=== PATIENT | male | born 1955 | race Caucasian/White ===

== ENCOUNTER 2021-08-28 21:56 | Emergency (ER) | payer OTHER ==
[~2021-08-28 21:56] MED LIST: AFRIN15 M1; ALEVE220 M1 PO; ALLOPURINOL300 MG PO; ARTHRITIS PAIN150 GM TOP; ASMANEX HFA13 G1 INH; AUGMENTIN 500-1 EACH PO; BACLOFEN 10MG T10 MG PO; CLARITIN10 MG PO; CVS NIGHTTIME118 ML PO; DESYREL50 MG PO; FLOMAX0.4 MG PO; GUAIFENESIN200 MG PO; LAMICTAL100 MG PO; MAG-OXIDE 400M400 MG PO; NEURONTIN300 MG PO; NYSTATIN 112 TSP/BTL PO; PRILOSEC20 MG PO; PROSCAR5 MG PO; TRAMADOL HCL50 MG PO; VENTOLIN HFA IN18 GM INH; WELLBUTRIN XL300 MG PO
[2021-08-28 22:31] LABS: EOSINOPHIL 3.3 % (0-7); HCT 44.5 % (42.0-52.0); HGB 14.4 g/dl (13.2-18.0); LYMPHOCYTE 25.6 % (15-48); MCH 30.6 pg (25.0-31.0); MCHC 32.4 g/dL (32.0-36.0); MCV 94.5 fL (78.0-100.0); MONOCYTE 6.4 % (0-12); MPV 9.3 fL (6.0-9.5); NEUTROPHIL 63.5 % (41-80); NRBC 0; PLT 293 K/uL (150-400); RBC 4.71 M/uL (4.70-6.00); RDW 14.7 % (11.5-14.0); WBC 10.1 K/uL (4.0-10.5)
[2021-08-28 22:53] LABS: BILIRUBIN - TOTAL 0.3 mg/dL (0.2-1.0); BUN/CREAT RATIO (CALC) 17.2 RATIO; CREATININE 0.99 mg/dL (0.67-1.17); GLOBULIN (CALCULATION) 2.9 g/dL; POTASSIUM 4.1 mmol/L (3.5-5.1); TOTAL PROTEIN 6.9 g/dL (6.4-8.2)
[2021-08-29] MEDS ORDERED: VIBRAMYCIN100 MG PO (00:17)
[2021-08-29] MEDS ORDERED: NORVASC 10MG TA10 MG PO (00:17)
[2021-08-29] MEDS ORDERED: PREDNISONE 20MG20 MG PO (00:18)
[2021-08-29] MEDS ORDERED: AMOX TR-K CLV1 EAC4 PO (00:18)
== END 2021-08-29 08:20 | disposition home or self-care (01) ==
LOC: FER 21:56
PROVIDERS: Internal Medicine
DX: J44.1 Chronic obstructive pulmonary disease with (acute) exacerbation (principal); I10 Essential (primary) hypertension
CPT/HCPCS: 36415; 36600; 71045; 80053; 82803; 83735; 84145; 84484; 85025; 93005; 94640; 94664; J2550; J2930; J3490

== ENCOUNTER 2021-10-22 08:07 | Day surgery (SDC) | payer OTHER ==
[~2021-10-22] VITALS: Ht 168 cm; Wt 78.0 kg
[~2021-10-22 08:07] MED LIST changes: -ALEVE220 M1 PO; +AMOX TR-K CLV1 EAC4 PO; +NORVASC 10MG TA10 MG PO; +PREDNISONE 20MG20 MG PO; +VIBRAMYCIN100 MG PO
[2021-10-23 06:38] LABS: BASOPHIL 0.2 % (0-2); EOSINOPHIL 0.1 % (0-7); HCT 37.8 % (42.0-52.0); HGB 12.2 g/dl (13.2-18.0); LYMPHOCYTE 13.1 % (15-48); MCHC 32.3 g/dL (32.0-36.0); MCV 99.2 fL (78.0-100.0); MONOCYTE 9.8 % (0-12); MPV 8.9 fL (6.0-9.5); NEUTROPHIL 76.4 % (41-80); NRBC 0; PLT 380 K/uL (150-400); RBC 3.81 M/uL (4.70-6.00); RDW 14.4 % (11.5-14.0); WBC 13.4 K/uL (4.0-10.5)
[2021-10-23 07:06] LABS: BUN/CREAT RATIO (CALC) 15.2 RATIO; CREATININE 1.05 mg/dL (0.67-1.17); POTASSIUM 4.2 mmol/L (3.5-5.1)
[2021-10-23] MEDS ORDERED: FEOSOL325 MG PO ×2 (08:30→10:23)
[2021-10-23] MEDS ORDERED: ASPIRIN EC81 MG PO (10:23)
[2021-10-23] MEDS ORDERED: ALEVE220 M1 PO (16:27)
== END 2021-10-23 18:08 | disposition home or self-care (01) ==
LOC: FAS 08:07 → FMS 11:34 → FAS 10-23 18:08
PROVIDERS: Orthopaedic Surgery
DX: M19.012 Primary osteoarthritis, left shoulder (principal); G89.29 Other chronic pain; I10 Essential (primary) hypertension; K21.9 Gastro-esophageal reflux disease without esophagitis; F31.9 Bipolar disorder, unspecified; R09.02 Hypoxemia; Z87.891 Personal history of nicotine dependence; Z79.899 Other long term (current) drug therapy
CPT/HCPCS: 36415; 36600; 73020; 80048; 82803; 85025; 86850; 86900; 86901; 94010; 94640; 94760; 94762; 97116; 97161; 97166; 97535; C1713; C1776; J0171; J0697; J1100; J1885; J2250; J2270; J2405; J2704; J2795; J3010; J7120

== ENCOUNTER 2022-01-06 10:59 | Inpatient (IN) | payer OTHER ==
[~2022-01-06] VITALS: Ht 167.6 cm; Wt 64.6 kg
[~2022-01-06 10:59] MED LIST changes: +ALEVE220 M1 PO; +ASPIRIN EC81 MG PO; +FEOSOL325 MG PO
[2022-01-06 11:26] LABS: BASOPHIL 0.5 % (0-2); EOSINOPHIL 0.9 % (0-7); HCT 41.5 % (42.0-52.0); HGB 13.3 g/dl (13.2-18.0); LYMPHOCYTE 16.4 % (15-48); MCH 31.3 pg (25.0-31.0); MCV 97.6 fL (78.0-100.0); MONOCYTE 13.2 % (0-12); MPV 8.8 fL (6.0-9.5); NEUTROPHIL 68.4 % (41-80); NRBC 0; PLT 362 K/uL (150-400); RBC 4.25 M/uL (4.70-6.00); RDW 13.3 % (11.5-14.0)
[2022-01-06 11:50] LABS: ALBUMIN 3.4 g/dL (3.4-5.0); BILIRUBIN - TOTAL 0.4 mg/dL (0.2-1.0); CREATININE 0.93 mg/dL (0.67-1.17); GLOBULIN (CALCULATION) 3.6 g/dL; POTASSIUM 3.6 mmol/L (3.5-5.1)
[2022-01-06 11:58] LABS: CORONAVIRUS 2019 SARS-COV-2 NEGATIVE (NEGATIVE); INFLUENZA A NAA NEGATIVE (NEGATIVE)
[2022-01-07] MEDS ORDERED: NEURONTIN100 M1 PO (14:26)
[2022-01-07] MEDS ORDERED: TRAMADOL HCL50 MG PO (14:42)
--- NOTE | 2022-01-09 09:29 | NUR ---
01/09/22 Mr. Quijano lives alone. He is independent in the home and community. He is a and [facility] with [facility] Menjivar as his PCP. No discharge planning needs are anticipated.
[2022-01-09] MEDS ORDERED: MUCINEX 600MG600 MG PO ×2 (15:58→16:07)
[2022-01-09] MEDS ORDERED: DUONEB 2.5-0.5M1 AMP NEB ×2 (15:58→16:07)
[2022-01-09] MEDS ORDERED: SINGULAIR10 MG PO ×2 (15:58→16:07)
[2022-01-09] MEDS ORDERED: NEBULIZER UNIT NEB (16:07)
== END 2022-01-09 16:32 | disposition home or self-care (01) | DRG 189 ==
LOC: FER 10:59 → FMS 13:55
PROVIDERS: Emergency Medicine; ADMIT Internal Medicine
DX: J96.21 Acute and chronic respiratory failure with hypoxia (principal); J44.1 Chronic obstructive pulmonary disease with (acute) exacerbation; J96.22 Acute and chronic respiratory failure with hypercapnia; Z20.822 Contact with and (suspected) exposure to COVID-19; K59.00 Constipation, unspecified; I10 Essential (primary) hypertension; K21.9 Gastro-esophageal reflux disease without esophagitis; M81.0 Age-related osteoporosis without current pathological fracture; F31.9 Bipolar disorder, unspecified; Z87.891 Personal history of nicotine dependence; Z83.3 Family history of diabetes mellitus; Z82.49 Family history of ischemic heart disease and other diseases of the circulatory system; Z79.899 Other long term (current) drug therapy; N40.0 Benign prostatic hyperplasia without lower urinary tract symptoms; M19.90 Unspecified osteoarthritis, unspecified site; G89.29 Other chronic pain; M25.512 Pain in left shoulder
CPT/HCPCS: 36415; 36600; 71045; 71275; 80053; 82803; 84484; 85025; 87040; 93005; 94640; 94760; J0456; J0696; J1650; J2270; J2405; J2920; J2930; J7050; Q9967; U0002

== ENCOUNTER 2022-01-22 10:37 | Emergency (ER) | payer OTHER ==
[~2022-01-22 10:37] MED LIST changes: +DUONEB 2.5-0.5M1 AMP NEB; +MUCINEX 600MG600 MG PO; +NEBULIZER UNIT NEB; +NEURONTIN100 M1 PO; +SINGULAIR10 MG PO
[2022-01-22 12:07] LABS: BASOPHIL 0.7 % (0-2); EOSINOPHIL 2.7 % (0-7); HCT 35.6 % (42.0-52.0); HGB 11.2 g/dl (13.2-18.0); LYMPHOCYTE 13.8 % (15-48); MCH 30.4 pg (25.0-31.0); MCHC 31.5 g/dL (32.0-36.0); MCV 96.7 fL (78.0-100.0); MONOCYTE 6.9 % (0-12); MPV 8.5 fL (6.0-9.5); NEUTROPHIL 75.7 % (41-80); NRBC 0; PLT 418 K/uL (150-400); RBC 3.68 M/uL (4.70-6.00); RDW 13.2 % (11.5-14.0); WBC 10.5 K/uL (4.0-10.5)
[2022-01-22 12:26] LABS: ALBUMIN 2.7 g/dL (3.4-5.0); BILIRUBIN - TOTAL 0.1 mg/dL (0.2-1.0); BUN/CREAT RATIO (CALC) 17.2 RATIO; CREATININE 0.93 mg/dL (0.67-1.17); GLOBULIN (CALCULATION) 3.9 g/dL; POTASSIUM 3.9 mmol/L (3.5-5.1); TOTAL PROTEIN 6.6 g/dL (6.4-8.2); URIC ACID 5.8 mg/dL (3.5-7.2)
[2022-01-22] MEDS ORDERED: VIBRAMYCIN100 MG PO (13:12)
[2022-01-22] MEDS ORDERED: PREDNISONE 20MG20 MG PO (13:12)
[2022-01-22] MEDS ORDERED: NORCO 5-325 TA1 EACH PO (13:12)
== END 2022-01-22 13:45 | disposition home or self-care (01) ==
LOC: FER 10:37
PROVIDERS: Emergency Medicine
DX: J18.9 Pneumonia, unspecified organism (principal); M10.9 Gout, unspecified; I10 Essential (primary) hypertension; J44.9 Chronic obstructive pulmonary disease, unspecified
CPT/HCPCS: 36415; 36600; 71045; 73610; 80053; 82803; 84550; 85025; J7512